=== PATIENT | male | born 1975 | race Caucasian/White ===

== ENCOUNTER → 2017-11-18 | Outpatient (REF) | LOC: ZLAB.WCH 16:03 | DX: Z01.89 Encounter for other specified special examinations (principal) ==

== ENCOUNTER → 2017-12-16 | Outpatient (REF) | LOC: ZLAB.WCH 14:30 | DX: Z01.89 Encounter for other specified special examinations (principal) ==

== ENCOUNTER → 2018-03-30 | Outpatient (REF) | LOC: ZLAB.WCH 14:26 | DX: Z01.89 Encounter for other specified special examinations (principal) ==

== ENCOUNTER → 2020-07-10 | Outpatient (CLI) | payer BC | LOC: DIA.ED | DX: E11.9 Type 2 diabetes mellitus without complications (principal); Z79.84 Long term (current) use of oral hypoglycemic drugs | CPT/HCPCS: G0108 ==

== ENCOUNTER → 2020-07-24 | Outpatient (CLI) | payer BC | LOC: DIA.ED | DX: E11.9 Type 2 diabetes mellitus without complications (principal); Z79.84 Long term (current) use of oral hypoglycemic drugs | CPT/HCPCS: G0108 ==

== ENCOUNTER → 2020-08-07 | Outpatient (CLI) | payer BC | LOC: DIA.ED 08:45 | DX: E11.9 Type 2 diabetes mellitus without complications (principal); Z79.84 Long term (current) use of oral hypoglycemic drugs; E66.8 Other obesity | CPT/HCPCS: G0108 ==

== ENCOUNTER 2021-07-09 12:56 | Emergency (ER) | payer BC ==
[~2021-07-09] VITALS: Ht 180.3 cm; Wt 95.9 kg
[2021-07-09 13:07] VITALS: TEMP 98.1
[2021-07-09 13:41] LABS: BASO % 0.3 % (0.0-2.0); EOS % 0.6 % (0.0-4.0); GRAN # 5.1 K/mm3 (1.4-6.5); GRAN % 78.3 % (42.2-75.2); HEMATOCRIT 50.3 % (42.0-52.0); HEMOGLOBIN 17.3 g/dl (13.5-18.0); LYMPH # 0.6 K/mm3 (1.2-3.4); LYMPH % 9.3 % (20.0-51.0); MEAN CELL VOLUME 82 fl (80.0-100.0); MEAN CORPUSCULAR HEMOGLOBIN 28 pg (27-31); MEAN CORPUSCULAR HGB CONC 34 g/dl (33.0-37.0); MEAN PLATELET VOLUME 11.9 fl (7.4-10.4); MONO # 0.7 K/mm3 (0.1-0.6); PLATELET COUNT 168 K/mm3 (130-400); RED BLOOD COUNT 6.16 M/mm3 (4.20-5.60); REDCELL DISTRIBUTION WIDTH-CV 12.2 % (11.5-14.5)
[2021-07-09 13:57] LABS: ALBUMIN 4.4 gm/dL (3.5-5.0); CALCIUM 9.7 mg/dL (8.4-10.2); CREATININE, serum 1.29 mg/dL (0.72-1.25); POTASSIUM 4.2 mmol/L (3.5-4.5); TOTAL PROTEIN 7.9 gm/dL (6.2-8.1)
[2021-07-09 13:59] LABS: PROTHROMBIN TIME 11.2 SECONDS (9.7-12.8)
[2021-07-09 17:10] VITALS: BP 125/77; PULSE 113
[2021-07-09] MEDS ORDERED: ZOFRAN ODT4 MG PO (17:16)
== END 2021-07-09 17:28 | disposition home or self-care (01) ==
LOC: COL.ER 12:56
PROVIDERS: Nurse Practitioner Primary Care
DX: K52.9 Noninfective gastroenteritis and colitis, unspecified (principal)
CPT/HCPCS: J2405; J2550; J7030; Q9967